=== PATIENT | male | born 1960 | race Caucasian/White ===

== ENCOUNTER 2019-06-24 17:28 | Inpatient (IN) | payer BC ==
[2019-06-24] MEDS ORDERED: ACETAMINOPHEN 1000 MG/100 ML VIAL (NON FORMULARY) IVPB ONE (17:52)
[2019-06-24] MEDS ORDERED: ONDANSETRON 4 MG/2 ML VIAL IVPUSH ONE (17:52)
[2019-06-24] MEDS ORDERED: ACETAMINOPHEN INJECTION 100 ML IVPB ONE (18:00)
[2019-06-24] MEDS ORDERED: SODIUM CHLORIDE 1,000 ML IV STA (18:18)
[2019-06-24 18:25] LABS: BASO % 0.5 % (0-2.0); EOS % 0.1 % (0-4.5); HEMATOCRIT 50.5 % (35.4-49); HEMOGLOBIN 17.2 GM/dL (11.7-16.9); LYMPH % 14.1 % (8-40); MEAN CELL VOLUME 88.2 fl (80-96); MEAN PLT VOLUME 7.6 fl (7.5-11.1); MONO % 10.1 % (3.8-10.2); NEUT % 75.2 % (42.8-82.8); PLATELET COUNT 205 K/MM3 (134-434); RBC 5.73 M/mm3 (4.00-5.60); RDW 13.6 % (11.9-15.9); WHITE BLOOD COUNT 6.1 K/mm3 (4.0-10.0)
[2019-06-24 18:47] LABS: INR 1.08 (0.83-1.09); PROTHROMBIN TIME (PATIENT) 12.7 SEC (9.7-13.0)
[2019-06-24 18:50] LABS: ACTIVATED PTT 29.2 SECONDS (25.2-36.5)
[2019-06-24] MEDS ORDERED: ONDANSETRON 4 MG/2 ML VIAL ONE (18:56)
[2019-06-24] MEDS ORDERED: morphine CARPU-JECT 4 MG/1 ML DISP.SYRIN IVPUSH ONE (18:57)
[2019-06-24] MEDS ORDERED: morphine SULFATE 4 MG/ML VIAL ONE ×2 (18:59→23:16)
[2019-06-24 19:02] LABS: ALBUMIN 3.5 g/dl (3.4-5.0); ALK PHOS 71 U/L (45-117); ANION GAP 12 MMOL/L (8-16); BLOOD UREA NITROGEN 29.5 mg/dL (7-18); CHLORIDE 97 mmol/L (98-107); CO2 25 mmol/L (21-32); CREATININE 1.3 mg/dL (0.55-1.3); GLUCOSE,RANDOM 178 mg/dL (74-106); LIPASE 248 U/L (73-393); POTASSIUM 4.2 mmol/L (3.5-5.1); SGOT/AST 31 U/L (15-37); SGPT/ALT 31 U/L (13-61); SODIUM 134 mmol/L (136-145); TOT PROT 7.3 g/dl (6.4-8.2)
[2019-06-24] MEDS: morphine SULFATE 4 MG/ML VIAL IVPUSH PRN (23:18)
[2019-06-24] MEDS: SODIUM CHLORIDE 1,000 ML IV SCH (23:18)
[2019-06-24] MEDS ORDERED: CIPROFLOXACIN 400 MG/D5W 400 MG/200 ML IVPB IVPB ONE (23:42)
[2019-06-25 03:28] LABS: URINE APPEARANCE CLEAR; URINE COLOR YELLOW
[2019-06-25 03:29] LABS: URINE BILIRUBIN NEGATIVE (NEGATIVE); URINE GLUCOSE (UA) 250 (NEGATIVE); URINE KETONE NEGATIVE (NEGATIVE); URINE NITRITE NEGATIVE (NEGATIVE); URINE PROTEIN TRACE (NEGATIVE)
[2019-06-25 03:30] LABS: EPI CELLS 10 /uL (0-25.1); HYALINE CASTS 1 /uL (0-3.1); URINE BACTERIA 88 /uL (0-1359); URINE LEUK ESTERASE NEGATIVE (NEGATIVE); URINE RBC 4 /uL (0-23.9); URINE WBC 14 /uL (0-25.8)
[2019-06-25 05:10] VITALS: BMI 31.1
[2019-06-25] MEDS: morphine SULFATE 4 MG/ML VIAL IVPUSH PRN ×2 (05:27→12:14)
[2019-06-25] MEDS ORDERED: ONDANSETRON 4 MG/2 ML VIAL IVPUSH PRN (05:49)
[2019-06-25 07:44] LABS: BASO % 0.2 % (0-2.0); EOS % 0.1 % (0-4.5); HEMATOCRIT 44.1 % (35.4-49); HEMOGLOBIN 15.1 GM/dL (11.7-16.9); LYMPH % 14.2 % (8-40); MCH 30.4 pg (25.7-33.7); MCHC 34.2 g/dl (32.0-35.9); MEAN CELL VOLUME 88.7 fl (80-96); MEAN PLT VOLUME 7.8 fl (7.5-11.1); MONO % 12.3 % (3.8-10.2); NEUT % 73.2 % (42.8-82.8); PLATELET COUNT 181 K/MM3 (134-434); RBC 4.97 M/mm3 (4.00-5.60); RDW 13.5 % (11.9-15.9); WHITE BLOOD COUNT 5.2 K/mm3 (4.0-10.0)
[2019-06-25 07:53] LABS: BLOOD UREA NITROGEN 23.7 mg/dL (7-18); CALCIUM 7.9 mg/dL (8.5-10.1); POTASSIUM 3.9 mmol/L (3.5-5.1)
[2019-06-25] MEDS: ACETAMINOPHEN 325 MG TABLET (FP) PO PRN ×2 (08:19→18:15)
[2019-06-25] MEDS ORDERED: PT OWN MED DRAWER 7, Y5N ONE (09:03)
[2019-06-25] MEDS: HEPARIN NA (PORCINE) 5,000 UNITS/ML 1ML VIAL SQ SCH ×2 (09:17→21:34)
[2019-06-25] MEDS ORDERED: CIPROFLOXACIN 400 MG/D5W 400 MG/200 ML IVPB IVPB SCH (12:00)
[2019-06-25] MEDS: PANTOPRAZOLE SODIUM 40 MG VIAL IVPUSH SCH (13:11)
[2019-06-25] MEDS ORDERED: MELATONIN 5 MG TABLETS PO PRN (18:36)
[2019-06-26] MEDS: SODIUM CHLORIDE 1,000 ML IV SCH ×2 (01:02→17:21)
[2019-06-26] MEDS ORDERED: PT OWN MED DRAWER 7, Y5N ONE (09:52)
[2019-06-26] MEDS: PANTOPRAZOLE SODIUM 40 MG VIAL IVPUSH SCH (10:01)
[2019-06-26] MEDS: HEPARIN NA (PORCINE) 5,000 UNITS/ML 1ML VIAL SQ SCH ×2 (10:02→21:08)
[2019-06-26] MEDS: ACETAMINOPHEN 325 MG TABLET (FP) PO PRN (12:53)
[2019-06-27] MEDS: SODIUM CHLORIDE 1,000 ML IV SCH (01:34)
[2019-06-27] MEDS: PANTOPRAZOLE SODIUM 40 MG VIAL IVPUSH SCH (09:24)
[2019-06-27] MEDS: HEPARIN NA (PORCINE) 5,000 UNITS/ML 1ML VIAL SQ SCH (09:24)
[2019-06-27 18:29] VITALS: BP 124/76; PULSE 84; TEMP 99
== END 2019-06-27 18:35 | disposition home or self-care (01) | DRG 391 ==
LOC: JER 17:28 → JERBED 20:56 → J8W 06-25 04:24
PROVIDERS: ADMIT Internal Medicine; ATTEND Internal Medicine
DX: A09 Infectious gastroenteritis and colitis, unspecified (principal); J18.9 Pneumonia, unspecified organism; N17.9 Acute kidney failure, unspecified; R09.02 Hypoxemia; E78.5 Hyperlipidemia, unspecified; I10 Essential (primary) hypertension; Z79.4 Long term (current) use of insulin; Z87.891 Personal history of nicotine dependence; E66.9 Obesity, unspecified; Z68.31 Body mass index [BMI] 31.0-31.9, adult
CPT/HCPCS: 36415; 71045-TC-FY; 71260-TC; 74177-TC; 80048; 80053; 81003; 82272; 82550; 83605; 83690; 84484; 85025; 85610; 85730; 86850; 86900; 86901; 87040; 87045; 87046; 87086; 87177; 87209; 87324; 87449; 87798; 87804; 87899; 93005; 93010; 99285-25; J0131; J1644; Q9967; U0002

== ENCOUNTER 2020-06-08 11:09 | Emergency (ER) | payer BC ==
[2020-06-08 11:23] VITALS: BP 135/95; PULSE 70; TEMP 98.2; BMI 30.1
[2020-06-08] MEDS ORDERED: DIPHTH,PERTUSS(ACELL),TET 0.5 ML DISP.SYRIN IM ONE ×2 (11:36→11:38)
== END 2020-06-08 12:07 | disposition home or self-care (01) ==
LOC: JERFT 11:09
PROC: 0HQEXZZ Repair Left Lower Arm Skin, External Approach (ICD-10-PCS; principal; 2020-06-08)
PROC: 3E0234Z Introduction of Serum, Toxoid and Vaccine into Muscle, Percutaneous Approach (ICD-10-PCS; principal; 2020-06-08)
DX: S61.512A Laceration without foreign body of left wrist, initial encounter (principal); W26.0XXA Contact with knife, initial encounter
CPT/HCPCS: 90715; 99282-25

== ENCOUNTER 2024-12-19 23:23 | Inpatient (IN) | payer BC ==
[2024-12-19] MEDS ORDERED: methylPREDNISolone NA SUCC 125 MG/2 ML VIAL ONE (23:35)
[2024-12-19] MEDS: methylPREDNISolone NA SUCC 125 MG/2 ML VIAL IVPB ONE (23:40)
[2024-12-19 23:49] LABS: BG HCT 60.0 % (35.4-49); VENOUS BASE EXCESS -3.0 mmol/L (-2-2); VENOUS O2 SATURATION 34.8 % (70-80); VENOUS PCO2 35.5 mmHg (38-52); VENOUS PH 7.389 (7.310-7.410)
[2024-12-19 23:52] LABS: MCHC 33.7 g/dl (32.3-36.5); MEAN CELL VOLUME 89.0 fl (79.0-92.2); MEAN PLT VOLUME 9.9 fl (9.4-12.4); RDW 12.8 % (12.2-16.4)
[2024-12-19 23:59] LABS: INR 1.12 (0.83-1.09); PROTHROMBIN TIME (PATIENT) 12.3 SEC (9.7-13.0)
[2024-12-20 00:02] LABS: ACTIVATED PTT 33.4 SECONDS (25.2-36.5)
[2024-12-20 00:08] LABS: GLUCOSE,RANDOM 179 mg/dL (74-106); TOT PROT 9.1 g/dl (6.4-8.2)
[2024-12-20 00:09] LABS: CO2 21 mmol/L (21-32)
[2024-12-20 00:11] LABS: ALK PHOS 118 U/L (40-150)
[2024-12-20 00:14] LABS: CREATININE 1.25 mg/dL (0.55-1.3); SGOT/AST 35 U/L (5-34); SGPT/ALT 23 U/L (0-55)
[2024-12-20] MEDS ORDERED: MAGNESIUM SULFATE IN WATER 2 GM/50 ML IVPB IVPB ONE (00:20)
[2024-12-20] MEDS: MAGNESIUM SULFATE IN WATER 2 GM/50 ML IVPB IVPB ONE (00:27)
[2024-12-20 00:34] LABS: HCV DIAGNOSTIC IN-HOUSE W/RFLX NON-REACTIVE (NONREACTIVE)
[2024-12-20 00:44] LABS: HIV INTERPRETATION NEGATIVE (NEGATIVE)
[2024-12-20] MEDS ORDERED: CEFTRIAXONE 1 GM/50 ML BAG ONE (00:58)
[2024-12-20] MEDS: CEFTRIAXONE 1,000 MG in DEXTROSE 5%-WATER - 50 ML IVPB ONE (01:19)
[2024-12-20] MEDS ORDERED: AZITHROMYCIN IVPB 500 MG/250 ML BAG IVPB ONE (01:24)
[2024-12-20] MEDS: AZITHROMYCIN IVPB 500 MG in DEXTROSE 5%-WATER - 250 ML IVPB ONE (01:37)
[2024-12-20] MEDS ORDERED: ONDANSETRON 4 MG/2 ML VIAL ONE (01:39)
[2024-12-20] MEDS: ONDANSETRON 4 MG/2 ML VIAL IVPUSH ONE (01:43)
[2024-12-20 04:11] VITALS: BMI 28.1
[2024-12-20] MEDS: MAGNESIUM 1GM/D5W 100ML - 100 ML IVPB IVPB ONE (04:14)
[2024-12-20] MEDS: SODIUM CHLORIDE 1,000 ML IV STA (05:57)
[2024-12-20] MEDS: INSULIN ASPART SLIDING SCALE (NOVOLOG) 1 VIAL SQ SCH (06:36)
[2024-12-20 07:12] LABS: ARTERIAL BLD GAS O2 SATURATION 72.8 % (95-98); ARTERIAL BLOOD GAS BASE EXCESS -4.9 mmol/L (-2-2); ARTERIAL BLOOD GAS PCO2 29.80 mmHg (35-45); BG HCT 52.0 % (35.4-49); O2 CONTENT 1.74 % vol
[2024-12-20 07:14] LABS: ALLENS TEST POSITIVE
[2024-12-20 07:17] LABS: ARTERIAL BLOOD GAS PO2 37.7 mmHg (80-100)
[2024-12-20 09:51] LABS: MCHC 33.0 g/dl (32.3-36.5); MEAN CELL VOLUME 90.5 fl (79.0-92.2); MEAN PLT VOLUME 10.2 fl (9.4-12.4); RDW 13.0 % (12.2-16.4)
[2024-12-20] MEDS: methylPREDNISolone NA SUCC 40 MG/1 ML VIAL IVPUSH SCH (10:31)
[2024-12-20] MEDS: ENOXAPARIN NA (PORCINE) 40 MG/0.4 ML DISP.SYRIN SQ SCH (10:31)
[2024-12-20] MEDS: ASPIRIN 325 MG ENTERIC COATED TABLET (FP) PO ONE (10:33)
[2024-12-20] MEDS: FLUTICASONE/UMECLIDIN/VILANTER(200-62.5-25 TRELEGY ELLIPTA) INAHLER IH SCH (12:36)
[2024-12-20] MEDS: LISINOPRIL 5 MG TABLET PO SCH (14:10)
[2024-12-20] MEDS: ASPIRIN 81 MG CHEWABLE TABLETS PO SCH (17:20)
[2024-12-20] MEDS: FUROSEMIDE 40 MG/4 ML INJECTABLE VIAL IVPUSH ONE (17:24)
[2024-12-20] MEDS: EMPAGLIFLOZIN (JARDIANCE) 10 MG TABLET PO SCH (17:24)
[2024-12-20] MEDS: ACETAMINOPHEN 1000 MG/100 ML BAG IVPB ONE (20:36)
[2024-12-20] MEDS: OMEGA-3 ACID ETHYL ESTERS (FATTY-ACIDS) 1 GM CAPSULE (FP) PO SCH (21:44)
[2024-12-20] MEDS: CEFTRIAXONE 1 GM in DEXTROSE 5%-WATER - 50 ML IVPB SCH (21:44)
[2024-12-20] MEDS: INSULIN GLARGINE (LANTUS) 100 UNITS/ML UNITS SQ SCH (21:44)
[2024-12-20] MEDS: AZITHROMYCIN IVPB 500 MG/250 ML BAG IVPB SCH (22:58)
[2024-12-20] MEDS: TRIMETHOBENZAMIDE HCL 200MG/2ML INJ IM PRN (23:23)
[2024-12-21] MEDS: FAMOTIDINE 20 MG/50 ML IVPB 20 MG/50 ML MG IVPB ONE (02:43)
[2024-12-21 08:55] LABS: ABSOLUTE IMMATURE GRANULOCYTES 0.12 x10^3/uL (0.0-0.031); BASOPHILS # 0.01 x10^3/uL (0.01-0.08); EOSINOPHIL % 0.0 % (0.8-7.0); EOSINOPHILS # 0.00 x10^3/uL (0.04-0.54); MCHC 32.9 g/dl (32.3-36.5); MEAN CELL VOLUME 89.9 fl (79.0-92.2); MEAN PLT VOLUME 10.1 fl (9.4-12.4); MONOCYTE # 0.49 x10^3/uL (0.30-0.82); MONOCYTE % 3.0 % (5.3-12.2); RDW 12.6 % (12.2-16.4)
[2024-12-21 09:24] LABS: GLUCOSE,RANDOM 155.0 mg/dL (74-106); TOT PROT 7.5 g/dl (6.4-8.2)
[2024-12-21] MEDS: ATORVASTATIN CA 10 MG TABLET (FP) PO SCH (09:24)
[2024-12-21 09:25] LABS: CO2 23.0 mmol/L (21-32)
[2024-12-21 09:27] LABS: ALK PHOS 75.0 U/L (40-150)
[2024-12-21 09:30] LABS: CREATININE 1.19 mg/dL (0.55-1.3); SGOT/AST 31.0 U/L (5-34); SGPT/ALT 18.0 U/L (0-55)
[2024-12-21] MEDS: FAMOTIDINE 20 MG/50 ML IVPB 20 MG/50 ML MG IVPB PRN (22:05)
[2024-12-21] MEDS: PHENOL 177 ML SPRAY BOTTLE MM PRN (22:51)
[2024-12-22] MEDS: ATORVASTATIN CA 10 MG TABLET (FP) PO SCH (22:13)
[2024-12-23 07:16] LABS: ARTERIAL BLD GAS O2 SATURATION 96.3 % (95-98); ARTERIAL BLOOD GAS BASE EXCESS 1.4 mmol/L (-2-2); ARTERIAL BLOOD GAS PCO2 35.30 mmHg (35-45); ARTERIAL BLOOD GAS PO2 78.5 mmHg (80-100); BG HCT 53.0 % (35.4-49)
[2024-12-23 07:25] LABS: ALLENS TEST POSITIVE
[2024-12-24] MEDS: methylPREDNISolone NA SUCC 40 MG/1 ML VIAL IVPUSH SCH (06:12)
[2024-12-24] MEDS: EMPAGLIFLOZIN (JARDIANCE) 10 MG TABLET PO SCH (06:35)
[2024-12-26 10:33] VITALS: RESP 18
[2024-12-26 10:43] VITALS: BP 152/92; PULSE 85; TEMP 97.6
== END 2024-12-26 13:28 | disposition home or self-care (01) | DRG 196 ==
LOC: JER 23:23 → JERBED 12-20 01:36 → J4S 12-20 03:46
PROVIDERS: ADMIT Internal Medicine; ATTEND Internal Medicine
DX: J84.10 Pulmonary fibrosis, unspecified (principal); I50.31 Acute diastolic (congestive) heart failure; J18.9 Pneumonia, unspecified organism; J96.21 Acute and chronic respiratory failure with hypoxia; I24.89 Other forms of acute ischemic heart disease; I10 Essential (primary) hypertension; E78.5 Hyperlipidemia, unspecified; E11.9 Type 2 diabetes mellitus without complications; I27.20 Pulmonary hypertension, unspecified
CPT/HCPCS: 36415; 36600; 71045-TC-FY; 71275-TC; 76604; 80048; 80053; 82010; 82803; 82962; 83605; 83690; 83735; 83880; 84100; 84484; 85025; 85027; 85610; 85730; 86803; 87040; 87389; 87637-QW; 87899; 93005; 93010; 93306-TC; 93308; 97116-GP; 97162-GP; 99291